=== PATIENT | male | born 1995 | race Caucasian/White ===

== ENCOUNTER 2018-09-01 09:03 | Emergency (ER) | payer SELFPAY ==
[2018-09-01 09:10] VITALS: BP 144/82
--- NOTE | 2018-09-01 09:44 | ER Document Report ---
ED General - General Chief Complaint: Lip Swelling Stated Complaint: LIP INJURY Time Seen by Provider: 09/01/18 09:22 TRAVEL OUTSIDE OF THE [place] IN LAST 30 DAYS: No - HPI Notes: Patient is a 23-year-old male that presents to the emergency department for chief complaint of lip pain. Patient states on 08/27/18 he noticed a blister on his lower lip. 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 Yesterday patient poked the blister with a needle and it drained clear fluids. Since then he has had increased pain and swelling of his lower lip. He denies fevers or chills. He denies any sublingual swelling. He has not taken any [id number] medication for pain. Patient states he took 1 dose of a family members clindamycin with no improvement of symptoms. Past Medical History: Negative Past Surgical History: Negative Social History: Daily tobacco. Denies drugs and alcohol Family History: Reviewed and noncontributory for presenting illness Allergies: Reviewed, see documented allergy list. REVIEW OF SYSTEMS: CONSTITUTIONAL : No fever No chills No diaphoresis No recent illness EENT: Lip swelling No vision changes No congestion No sore throat CARDIOVASCULAR: No chest pain No palpitations RESPIRATORY: No shortness of breath No cough No difficulty breathing GASTROINTESTINAL: No abdominal pain No nausea No vomiting No diarrhea GENITOURINARY: No dysuria No hematuria No difficulty urinating MUSCULOSKELETAL: No back pain No leg pain No arm pain SKIN: No rashes No lesions LYMPHATIC: No swollen, enlarged glands. NEUROLOGICAL: No lightheadedness No headache No weakness No paresthesias PSYCHIATRIC: No anxiety No depression PHYSICAL EXAMINATION: Vital signs reviewed, nursing noted reviewed. GENERAL: Well-appearing, well-nourished and in no acute distress. HEAD: Atraumatic, normocephalic. EYES: Eyes appear normal, extraocular movements intact, sclera anicteric, conjunctiva are normal. ENT: Lower lip edema and erythema with overlying excoriation, no active drainage , no vesicles, pustules or areas of fluctuance. Nares patent, oropharynx clear without exudates. Moist mucous membranes. NECK: Normal range of motion, supple without lymphadenopathy LUNGS: Breath sounds clear to auscultation bilaterally and equal. No wheezes rales or rhonchi. HEART: Regular rate and rhythm without murmurs ABDOMEN: Soft, nontender, normoactive bowel sounds. No rebound, guarding, or rigidity. No masses appreciated. EXTREMITIES: Nontender, good range of motion, no pitting or edema. NEUROLOGICAL: No focal neurological deficits. Moves all extremities spontaneously Motor and sensory grossly intact on exam. PSYCH: Normal mood, normal affect. SKIN: Warm, Dry, normal turgor, no rashes or lesions noted on exposed skin - Related Data Allergies/Adverse Reactions: No Known Allergies Allergy (Verified 09/01/18 09:07) Past Medical History - Social History Smoking Status: Current Every Day Smoker Chew tobacco use (# tins/day): No Frequency of alcohol use: None Drug Abuse: None Family History: None Patient has suicidal ideation: No Patient has homicidal ideation: No Renal/ Medical History: Denies: Hx Peritoneal Dialysis - Immunizations Hx Diphtheria, Pertussis, Tetanus Vaccination: Yes Review of Systems - Review of Systems Notes: Dictated Physical Exam - Vital signs Vitals: Temp Pulse Resp BP Pulse Ox 97.7 F 84 20 144/82 H 100 09/01/18 09:10 09/01/18 09:10 09/01/18 09:10 09/01/18 09:10 09/01/18 09:10 - Notes Notes: Dictated Course - Re-evaluation Re-evalutation: 09/01/18 09:42 Vitals reviewed. Nursing notes reviewed. Patient has a lower lip cellulitis and will be started on Keflex. He does not have any active blisters or pustules. Patient advised on wound care. He will follow with family doctor for follow-up. He will return for new or worsening symptoms. Discharged in stable condition. - Vital Signs Vital signs: Temp Pulse Resp BP Pulse Ox 97.7 F 84 20 144/82 H 100 09/01/18 09:10 09/01/18 09:10 09/01/18 09:10 09/01/18 09:10 09/01/18 09:10 Discharge - Discharge Clinical Impression: Blister of lip with infection Qualifiers: Encounter type: initial encounter Qualified Code(s): S00.521A - Blister ( nonthermal) of lip, initial encounter; L08.9 - Local infection of the skin and subcutaneous tissue, unspecified; L08.9 - Local infection of the skin and subcutaneous tissue, unspecified Condition: Stable Disposition: HOME, SELF-CARE Instructions: Family Physicians / Practices, Cellulitis ([facility]) Additional Instructions: Please return to the emergency department if you have any worsening, or concern of your symptoms. Please return to the emergency department if you develop chest pain, difficulty breathing, severe abdominal pain, or ongoing vomiting. Please follow-up with your primary care physician in 2-3 days and any other recommended physicians. If prescribed, take all medications as directed. If you have any questions or concerns do not hesitate to return the emergency department for evaluation. Do not pop any further blisters that may appear Prescriptions: Cephalexin Monohydrate [Keflex 500 mg Capsule] 500 mg PO Q6H 5 Days capsule
== END 2018-09-01 10:07 | disposition home or self-care (01) ==
LOC: ER 09:03
DX: S00.521A Blister (nonthermal) of lip, initial encounter (principal); K13.0 Diseases of lips; X58.XXXA Exposure to other specified factors, initial encounter; F17.200 Nicotine dependence, unspecified, uncomplicated
CPT/HCPCS: 99283

== ENCOUNTER 2019-03-13 17:23 | Emergency (ER) | payer SELFPAY ==
[2019-03-13 17:29] VITALS: BP 136/86
[2019-03-13] MEDS ORDERED: DIPHENHYDRAMINE HCL 25 MG CAPSULE PO ONE (17:47)
[2019-03-13] MEDS ORDERED: DEXAMETHASONE SOD PHOS INJ 10 MG/1 ML VIAL IM ONE (17:47)
[2019-03-13] MEDS ORDERED: CEPHALEXIN 500 MG CAPSULE PO ONE (17:47)
--- NOTE | 2019-03-13 17:51 | ER Document Report ---
HPI - HPI Patient complains to provider of: poison lisa exposure Time Seen by Provider: 03/13/19 17:42 Onset: Other Onset/Duration: Persistent, Worse Quality of pain: No pain Pain Level: 0 Context: Patient presents emergency department with reports of poison lisa exposure. 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 He rubbed his hands with his eyes. Now his eyes his face are swollen. His arms are itchy. Patient reports he has been applying calamine lotion and also taking Benadryl but no relief of symptoms. Patient reports he is seen without problems denies eye irritation denies discharge. Denies other symptoms such as fever vomiting diarrhea. Denies past medical history. Denies trouble breathing. Associated Symptoms: None Exacerbated by: Denies Relieved by: Denies Similar symptoms previously: No Recently seen / treated by doctor: No Past Medical History - General Information source: Patient - Social History Smoking Status: Unknown if Ever Smoked Cigarette use (# per day): No Frequency of alcohol use: None Drug Abuse: None Lives with: Family Family History: None Patient has suicidal ideation: No Patient has homicidal ideation: No - Medical History Medical History: Negative Renal/ Medical History: Denies: Hx Peritoneal Dialysis Surgical Hx: Negative - Immunizations Hx Diphtheria, Pertussis, Tetanus Vaccination: Yes Vertical Provider Document - CONSTITUTIONAL Agree With Documented VS: Yes Exam Limitations: No Limitations General Appearance: WD/WN, No Apparent Distress - nontoxic looking - INFECTION CONTROL TRAVEL OUTSIDE OF THE [place] IN LAST 30 DAYS: No - HEENT HEENT: Atraumatic, Normocephalic. negative: Conjuctival Injection, Pharyngeal Erythema - NECK Neck: Normal Inspection, Supple - RESPIRATORY Respiratory: Breath Sounds Normal, No Respiratory Distress - CARDIOVASCULAR Cardiovascular: Regular Rate - MUSCULOSKELETAL/EXTREMETIES Musculoskeletal/Extremeties: MAEW, FROM, Non-Tender - NEURO Level of Consciousness: Awake, Alert, Appropriate Motor/Sensory: No Motor Deficit - DERM Integumentary: Warm, Dry, Rash Adult Front & Back Diagram: 1 - Poison lisa rash to face bilateral arms lower legs. No weeping sores open his mouth wide clear voice no respiratory distress. 2 - poison lisa 3 - poison lisa 4 - poison lisa Course - Re-evaluation Re-evalutation: 03/13/19 18:08 Patient is alert and oriented good airway no vision issues. Will be treated for poison lisa . Patient was instructed on Vistaril. Was instructed to not take both Benadryl and Vistaril. Instructed to take Vistaril if the Benadryl does not work. Patient instructed on Keflex and steroids. He verbalized understanding to all instructions. Instructed to return to the emergency department for any concerns. - Vital Signs Vital signs: Temp Pulse Resp BP Pulse Ox 98.3 F 79 18 136/86 H 98 03/13/19 17:27 03/13/19 17:27 03/13/19 17:27 03/13/19 17:27 03/13/19 17:27 Discharge - Discharge Clinical Impression: Poison lisa Condition: Stable Disposition: HOME, SELF-CARE Instructions: Antihistamines ([facility]), Cephalexin ([facility]), Use of Diphenhydramine, Poison Lisa ([facility]), Steroid Medication Injection, Steroid Medication Additional Instructions: *You have been treated for posion lisa exposure to your face arms *Take medication as prescribed (take benadryl or vistaril for itching, do not take both) *Monitor your skin for signs of infection such as pain, increased redness and swelling, warmth *avoid itching, avoid hot showers, cool showers and cool compresses to your face *Follow up with a primary care provider within one week *Return to ED for signs of infection, worsening condition,changes, needs, trouble breathing, concerns, worsening rash. Monitor your blood pressure. Your blood pressure was elevated today. This may be because you were anxious, in pain or because you need medication. It is important to follow up with your primary care provider for full evaluation. Prescriptions: Cephalexin Monohydrate [Keflex 500 mg Capsule] 500 mg PO QID #20 capsule Hydroxyzine Pamoate [Vistaril 25 mg Capsule] 25 mg PO TID #15 capsule Methylprednisolone [Medrol Dosepack (4 mg/Tab) 21 Tab/Dosepak] 4 mg PO ASDIR PRN #21 [email or web address] PRN Reason: Forms: Elevated Blood Pressure, Return to Work
== END 2019-03-13 18:09 | disposition home or self-care (01) ==
LOC: ER 17:23
DX: L23.7 Allergic contact dermatitis due to plants, except food (principal)
CPT/HCPCS: 99283; 96372; J1100